=== PATIENT | male | born 1960 | race Caucasian/White ===

== ENCOUNTER 2020-05-04 21:00 | Emergency (ER) | payer MEDICAID ==
[~2020-05-04] VITALS: Ht 182.9 cm; Wt 83.9 kg
[~2020-05-04 21:00] MED LIST: HYDR-4383 PO; IBUPROFEN 600MG PO
[2020-05-04] MEDS ORDERED: morphine 4 MG/ML inj SYRINge IV ONE (21:15)
[2020-05-04] MEDS ORDERED: LORazepam 2 mg/ml vial IV ONE ×2 (21:15)
[2020-05-04] MEDS ORDERED: ondansetron/PF 4mg/2ml inj IV ONE (21:15)
[2020-05-04] MEDS ORDERED: iohexol 300mg/ml 100ml inj. ONE (21:18)
--- NOTE | 2020-05-04 21:25 | NUR ---
TO CT AND XRAY
[2020-05-04 21:42] LABS: BASOPHILS # (AUTO) 0.1 X10'3 (0-0.2); EOSINOPHILS # (AUTO) 0.4 X10'3 (0-0.9); EOSINOPHILS % (AUTO) 2.9 % (0-6); HEMATOCRIT 44.7 % (42.0-52.0); HEMOGLOBIN 15.1 g/dl (14.0-17.9); LYMPHOCYTES # (AUTO) 5.6 X10'3 (1.1-4.8); LYMPHOCYTES % (AUTO) 43.9 % (21-51); MEAN CORPUSCULAR HEMOGLOBIN 30.7 PG (27.0-31.0); MEAN CORPUSCULAR HGB CONC 33.9 g/dL (33.0-36.5); MEAN CORPUSCULAR VOLUME 90.5 FL (78-98); MEAN PLATELET VOLUME 9.2 FL (7.4-10.4); MONOCYTES # (AUTO) 0.9 X10'3 (0-0.9); MONOCYTES % (AUTO) 6.7 % (2-12); NEUTROPHILS # (AUTO) 5.8 X10'3 (1.8-7.7); NEUTROPHILS % (AUTO) 45.5 % (42-75); PLATELET COUNT 213 X10'3 (140-440); RED BLOOD COUNT 4.93 X10'6 (4.70-6.10); RED CELL DISTRIBUTION WIDTH 14.3 % (11.5-14.5); WHITE BLOOD COUNT 12.7 X10'3 (4.5-11.0)
[2020-05-04 21:49] LABS: ALANINE AMINOTRANSFERASE 69 U/L (12-78); ALBUMIN 3.5 G/DL (3.4-5.0); ALBUMIN/GLOBULIN RATIO 0.7 (1.1-1.5); ALKALINE PHOSPHATASE 54 IU/L (46-116); ANION GAP 9 (8-16); ASPARTATE AMINO TRANSFERASE 58 U/L (10-37); BILIRUBIN,TOTAL 0.3 MG/DL (0.1-1.0); BLOOD UREA NITROGEN 13 MG/DL (7-18); BUN/CREATININE RATIO 9.9 (5.4-32.0); CALCIUM 8.8 MG/DL (8.5-10.1); CHLORIDE 105 MMOL/L (99-107); CREATININE 1.31 MG/DL (0.60-1.10); GLUCOSE 158 MG/DL (70-104); SODIUM 139 MMOL/L (135-145); TOTAL CARBON DIOXIDE 25.3 MMOL/L (24-32); TOTAL PROTEIN 8.4 G/DL (6.4-8.2); eGFR 56 ML/MIN
[2020-05-04 21:52] LABS: ETHANOL 0.092 GM/DL (0.0-0.010); TROPONIN I < 0.04 NG/ML (0.0-0.05)
[2020-05-04 21:53] LABS: POTASSIUM 3.3 MMOL/L (3.5-5.1)
--- NOTE | 2020-05-04 22:35 | NUR ---
TRAUMA CALLED OFF BY DR INGRAM
[2020-05-04] MEDS ORDERED: TETanus/Pertussis (Acell)/Diphther VAC/PF (Tdap-Adult) 0.5ml syringe IMVAC ONE (22:45)
[2020-05-04] MEDS ORDERED: ketamine 10mg/ml 20ml inj IV ONE ×2 (22:45→23:40)
[2020-05-04] MEDS ORDERED: LIDOcaine 1% 30ml preserv. free vial IJ ONE (22:45)
[2020-05-04] MEDS ORDERED: ketamine 50 mg/ml 10ml vial IV ONE (22:50)
[2020-05-04 23:00] LABS: URINE AMPHETAMINE SCREEN POSITIVE (Neg); URINE BARBITUATE SCREEN NEGATIVE (Neg); URINE BENZODIAZEPINES SCREEN NEGATIVE (Neg); URINE CANNABINOID SCREEN NEGATIVE (Neg); URINE COCAINE SCREEN NEGATIVE (Neg); URINE METHADONE SCREEN NEGATIVE (Neg); URINE OPIATE SCREEN POSITIVE (Neg); URINE PHENCYCLIDINE SCREEN NEGATIVE (Neg)
[2020-05-04 23:04] LABS: CLARITY,URINE CLEAR (Clear); COLOR,URINE YELLOW (Yellow); GLUCOSE, URINE NEGATIVE (Neg); KETONES,URINE NEGATIVE (Neg); LEUKOCYTE ESTERASE ,URINE NEGATIVE (Neg); NITRITES, URINE NEGATIVE (Neg); OCCULT BLOOD,URINE NEGATIVE (Neg); PH,URINE 5.5 (4.8-8.0); PROTEIN,URINE NEGATIVE (Neg); UROBILINOGEN,URINE 0.2 E.U/dL (0.2-1.0)
[2020-05-04 23:13] LABS: UA COLLECTION TYPE STRAIGHT CATH
[2020-05-05] MEDS ORDERED: ketamine 50 mg/ml 10ml vial IV ONE (00:05)
--- NOTE | 2020-05-05 00:07 | NUR ---
VERBAL ORDER FROM TRU TO PUSH 25MG OF KETAMINE BEFORE MORE CLEANING OF WOUNDS TAKES PLACE
[2020-05-05] MEDS ORDERED: cephalexin 500mg capsule PO ONE (01:00)
[2020-05-05] MEDS ORDERED: OXYC-145 PO (01:08)
[2020-05-05] MEDS ORDERED: CEPH500C5 PO (01:08)
[2020-05-05 01:35] VITALS: BP 168/104
--- NOTE | 2020-05-05 01:37 | NUR ---
Pt. refusing DTAP booster. States that he just received the vaccination "a couple of months ago." aware.
== END 2020-05-05 02:02 | disposition home or self-care (01) ==
LOC: ER 21:01
DX: S42.124A Nondisplaced fracture of acromial process, right shoulder, initial encounter for closed fracture (principal); S56.429A Laceration of extensor muscle, fascia and tendon of unspecified finger at forearm level, initial encounter; S61.209A Unspecified open wound of unspecified finger without damage to nail, initial encounter; Z98.890 Other specified postprocedural states; Z72.89 Other problems related to lifestyle; Z79.2 Long term (current) use of antibiotics; X58.XXXA Exposure to other specified factors, initial encounter; Y93.89 Activity, other specified; Y92.89 Other specified places as the place of occurrence of the external cause; Y99.8 Other external cause status
CPT/HCPCS: 12035; 12045; 36415; 70450; 71260; 72125; 73030; 73130; 73610; 73630; 74177; 80053; 80305; 80320; 81003; 84484; 85025; 85610; 86885; 86900; 86901; 93005; 96374; 96375; 99285; J2060; J2270; J2405; Q9967; 90715